=== PATIENT | male | born 1955 | race Hispanic/Latino ===

== ENCOUNTER 2018-01-08 08:15 | Emergency (ER) | payer MEDICAID, OTHER ==
[2018-01-08 08:17] VITALS: BMI 20.7
[2018-01-08 08:19] VITALS: PULSE 90; RESP 17; TEMP 98.5
[2018-01-08 08:25] VITALS: O2SAT 98
--- NOTE | 2018-01-08 09:24 | ED PDOC ---
Upper Extremity Pain/Injury Time Seen by Provider: 01/08/18 08:50 Chief Complaint (Nursing): Upper Extremity Problem/Injury Chief Complaint (Provider): Upper Extremity Problem/Injury History Per: Patient History/Exam Limitations: no limitations Onset/Duration Of Symptoms: Hrs (prior to arrival) Current Symptoms Are (Timing): Still Present Quality: "Pain" Additional Complaint(s): 62 year old non domicile male presents to the ED after tripping and falling this morning prior to arrival. Patient now complains of right shoulder and right rib pain. He denies trauma and loss of consciousness. PMD: none provided Past Medical History Reviewed: Historical Data, Nursing Documentation, Vital Signs Vital Signs: Last Vital Signs Temp 98.5 F 01/08/18 08:17 Pulse 90 01/08/18 08:17 Resp 17 01/08/18 08:17 BP Pulse Ox 98 01/08/18 08:23 - Medical History PMH: Anemia, Anxiety, Asthma, COPD, Depression, Fractures (rt shoulder ribs), Gall Bladder Disease, HTN, Peripheral Edema, Pneumonia (2 years ago) Denies: Bronchitis, Personality Disorder, Chronic Kidney Disease - Surgical History Surgical History: Cholecystectomy - Family History Family History: States: Unknown Family Hx - Immunization History Hx Tetanus Toxoid Vaccination: No Hx Influenza Vaccination: Yes Hx Pneumococcal Vaccination: Yes - Home Medications Home Medications: Ambulatory Orders Medication Instructions Recorded PARoxetine [Paxil CR] 20 mg PO DAILY 06/03/16 Clonazepam [Klonopin] 1 mg PO TID 06/04/16 Ciprofloxacin [Cipro] 1 tab PO BID #14 tab 01/03/18 Tamsulosin [Flomax] 0.4 mg PO DAILY #7 cap 01/03/18 traMADol/Acetaminophen [Ultracet 1 tab PO Q6 #14 tab 01/03/18 325 MG-37.5 MG] - Allergies Allergies/Adverse Reactions: Allergies Allergy/AdvReac Type Severity Reaction Status Date / Time ibuprofen [From Advil] Allergy ANAPHYLAXIS Verified 01/08/18 08:23 Review of Systems ROS Statement: Except As Marked, All Systems Reviewed And Found Negative Musculoskeletal: Positive for: Shoulder Pain (right ), Other (right rib pain) Physical Exam - Reviewed Nursing Documentation Reviewed: Yes Vital Signs Reviewed: Yes - Physical Exam Appears: Positive for: No Acute Distress Head Exam: Positive for: ATRAUMATIC, NORMOCEPHALIC Skin: Positive for: Normal Color, Warm, Dry Eye Exam: Positive for: EOMI, Normal appearance, PERRL Neck: Positive for: Normal, Painless ROM, Supple (no c-spine tenderness) Cardiovascular/Chest: Positive for: Regular Rate, Rhythm Respiratory: Positive for: CNT, Normal Breath Sounds Gastrointestinal/Abdominal: Positive for: Soft, Tenderness (right lateral ribs) . Negative for: Other (deformity or ecchymosis) Extremity: Positive for: Normal ROM (full ROM at right shoulder), Tenderness ( to right shoulder). Negative for: Deformity, Other (ecchymosis) - ECG O2 Sat by Pulse Oximetry: 98 (RA) Pulse Ox Interpretation: Normal Medical Decision Making Medical Decision Making: Time: 09:07 Initial Plan: --Ribs and chest x-ray --right shoulder x-ray --Tylenol 650 mg PO Accession No. : [id number] Patient Name / ID : ART HARRIS / [id number] Exam Date : 01/08/2018 09:05:44 ( Approved ) Study Comment : Sex / Age : M / 62Y Creator : Peter Lainez MD Dictator : Peter Lainez MD Configuration Engineer : Slag Expander : Peter Lainez MD Approver2 : Report Date : 01/08/2018 10:49:25 My Comment : PROCEDURE: Radiographs of the Chest and Right Ribs. HISTORY: Fall COMPARISON: None available. TECHNIQUE: Frontal radiograph of the chest and multiple oblique radiographs of the right ribs were obtained. FINDINGS: RIGHT RIBS: No fracture or focal lesion visualized. LUNGS: Clear. PLEURA: No pneumothorax or pleural fluid. CARDIOVASCULAR: Normal sized heart. No pulmonary vascular congestion. OTHER FINDINGS: None. IMPRESSION: No acute findings related to/accounting for the clinical presentation. Accession No. : [id number] Patient Name / ID : ART HARRIS / [id number] Exam Date : 01/08/2018 09:10:25 ( Approved ) Study Comment : Sex / Age : M / 62Y Creator : Peter Lainez MD Dictator : Peter Lainez MD Configuration Engineer : Slag Expander : Peter Lainez MD Approver2 : Report Date : 01/08/2018 10:50:06 My Comment : PROCEDURE: Radiographs of the Right Shoulder HISTORY: Fall COMPARISON: No prior. FINDINGS: BONES: Heel fracture proximal right humerus JOINTS: Preservation of glenohumeral joint. There are degenerative/posttraumatic changes. No significant acromioclavicular abnormalities. SOFT TISSUES: Normal. OTHER FINDINGS: None. IMPRESSION: No acute findings related to/accounting for the clinical presentation. Scribe Attestation: Documented by Hannah Hernandez, acting as a scribe for Ni Aceves MD Provider Scribe Attestation: All medical record entries made by the Scribe were at my direction and personally dictated by me. I have reviewed the chart and agree that the record accurately reflects my personal performance of the history, physical exam, medical decision making, and the department course for this patient. I have also personally directed, reviewed, and agree with the discharge instructions and disposition. Disposition - Clinical Impression Clinical Impression: Shoulder injury, Rib contusion - Disposition Referrals: [facility] [place] [Outside] Disposition: Routine/Home Disposition Time: 11:27 Condition: STABLE Additional Instructions: TAKE TYLENOL NEEDED FOR PAIN. Instructions: Muscle Strain, Camphor and Menthol, Bruised Rib Forms: [employer] (K[place]akh)
--- NOTE | 2018-01-08 10:50 | RAD ---
PROCEDURE: Radiographs of the Chest and Right Ribs. HISTORY: Fall COMPARISON: None available. TECHNIQUE: Frontal radiograph of the chest and multiple oblique radiographs of the right ribs were obtained. FINDINGS: RIGHT RIBS: No fracture or focal lesion visualized. LUNGS: Clear. PLEURA: No pneumothorax or pleural fluid. CARDIOVASCULAR: Normal sized heart. No pulmonary vascular congestion. OTHER FINDINGS: None. IMPRESSION: No acute findings related to/accounting for the clinical presentation.
--- NOTE | 2018-01-08 10:51 | RAD ---
PROCEDURE: Radiographs of the Right Shoulder HISTORY: Fall COMPARISON: No prior. FINDINGS: BONES: Heel fracture proximal right humerus JOINTS: Preservation of glenohumeral joint. There are degenerative/posttraumatic changes. No significant acromioclavicular abnormalities. SOFT TISSUES: Normal. OTHER FINDINGS: None. IMPRESSION: No acute findings related to/accounting for the clinical presentation.
== END 2018-01-08 12:34 | disposition home or self-care (01) ==
LOC: H.ER 08:15
DX: S49.91XA Unspecified injury of right shoulder and upper arm, initial encounter (principal); S20.219A Contusion of unspecified front wall of thorax, initial encounter; Z86.59 Personal history of other mental and behavioral disorders; Z59.0 Homelessness; I10 Essential (primary) hypertension; J44.9 Chronic obstructive pulmonary disease, unspecified; Z88.6 Allergy status to analgesic agent; W19.XXXA Unspecified fall, initial encounter